=== PATIENT | female | born 1955 | race Caucasian/White ===

== ENCOUNTER 2019-11-25 14:53 | Outpatient (CLI) | payer MEDICARE, MEDICAID, SELFPAY ==
--- NOTE | 2019-11-25 15:06 | MR_ITS ---
WS: [id number] MRI BRAIN WITH AND WITHOUT CONTRAST HISTORY: Memory loss and amnesia. COMPARISON: None available. TECHNIQUE: Multiplanar imaging performed through the brain with Prohance 17 ml's IV. No acute infarcts are seen. Velasquez-white matter differentiation is well preserved. Extensive T2 and FLA IR signal abnormalities throughout the brain. There are innumerable subcortical and periventricular w suly matter abnormalities. These are extensive beginning at the vertex extending through the basal ga nglia. Additional bilateral signal abnormalities within the ivy. Several of the white matter lesions are closely associated with the corpus callosum. No susceptibility artifacts or prior lacunar infarcts. Ventricles and extra-axial spaces are normal. Clivus and pituitary gland are normal. No enhancing masses. None of the white matter lesions enhance. There is a filling defect in the RIGHT transverse sinus most likely an arachnoid granulation as it is well-circumscribed. Small caliber but patent distal LEFT vertebral artery. Paranasal sinuses: Well aerated with no significant disease. Mastoid air cells: Normal. Calvarium and scalp: Normal. MR/MR head wo/w con [id number] IMPRESSION: 1. No acute infarct. 2. Extensive T2 and FLAIR signal abnormalities throughout the supratentorial b rain in the ivy. More advanced than typically noted in a patient of this age. Differential includes changes associated with hypertension, small vessel ischem ic disease, demyelinating disease and vasculitis. 3. No enhancing masses or signal abnormalities.
== END 2019-11-25 14:54 | disposition home or self-care (01) ==
LOC: RADSHAW 15:05
PROVIDERS: PCP Family Medicine; Visit Provider Family Medicine
DX: R41.3 Other amnesia (principal)
CPT/HCPCS: 70553; A9579

== ENCOUNTER 2022-06-07 13:24 | Outpatient (CLI) | payer MEDICARE, MEDICAID, SELFPAY ==
--- NOTE | 2022-06-07 13:28 | MM_ITS ---
WS: [id number] VIEWS: MLO and CC views both breasts. 3D digital tomosynthesis is also included in this exam. No priors. Findings: There was no sign of mass, architectural distortion or suspicious calcification in either breast. 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
== END 2022-06-07 13:25 | disposition home or self-care (01) ==
LOC: RAD 13:25
PROVIDERS: PCP Family Medicine; Visit Provider Family Medicine
DX: Z12.31 Encounter for screening mammogram for malignant neoplasm of breast (principal)
CPT/HCPCS: 77063; 77067

== ENCOUNTER 2022-09-26 14:47 | Observation (INO) | payer MEDICARE, MEDICAID, SELFPAY ==
[2022-09-26 14:59] VITALS: BP 162/90; PULSE 95; RESP 16; TEMP 36.4; O2SAT 98
--- NOTE | 2022-09-26 15:00 | P.HP_ITS ---
Providers/Chief Complaint Admitting Physician: Khang Hitchcock MD Primary Care Provider: Apple Hitchcock MD Chief Complaint: direct admit History of Present Illness Aniyah Berman is a 67 year old female presenting from [facility] emergency department with history of slurred speech, difficulty with balance noted this morning. In the emergency department the patient received Plavix, aspirin, Lipitor. Patient relates to me she was doing okay this morning. 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 She does not believe she took her antihypertensives. While cleaning around 8 AM she noticed she had difficulty keeping her balance, falling to the left. Family member noticed a left facial droop, slurring of speech. Patient reported some headache, mainly on the left. She denies any visual difficulties, difficulty swallowing, nausea, chest discomfort. She states she was dizzy, feeling as if she might pass out. She reports the room was not spinning. This continued for perhaps 20 minutes and then symptoms completely resolved. Patient as well as family reports she is completely back to normal currently. She went to the emergency department at [place], and by the time she had arrived their symptoms are completely resolved. NIHSS score was 0. CT head did not demonstrate anything acute, CTA head and neck demonstrated moderate to severe stenosis left A3 segment. No arrhythmias were noted in the emergency department. She denies being ill lately. No recent fevers. No blood in her stool. No history of heart problems. Review of Systems General: Reports: 10 or more systems reviewed and unremarkable except in HPI and below Const: Denies: fever(s), chills, fatigue or malaise Card: Denies: chest pain Resp: Denies: dyspnea GI: Denies: hematochezia or melena Neuro: Reports: headache(s), lack of coordination, difficulty walking, dizziness and Slurred speech present; Denies: numbness in extremities or weakness in extremities Medications/Allergies Home Medications Medication Instructions Recorded Confirmed Last Taken Type ketotifen fumarate 0.025 % (0.035 1 drp ophthalmic (eye) BID PRN 02/10/22 09/09/22 Unknown Rx %) eye drops (Zaditor) allergy symptoms #5 mL aspirin 81 mg chewable tablet 81 mg PO DAILY 09/09/22 09/09/22 Unknown History clobetasol 0.05 % topical ointment 1 applic topical BID 3 weeks #60 09/09/22 09/09/22 Unknown Rx grams losartan 25 mg tablet 25 mg PO DAILY 09/09/22 09/09/22 Unknown History Allergies Allergy/AdvReac Type Severity Reaction Status Date / Time Sulfa (Sulfonamide Allergy Unknown Verified 09/09/22 10:46 Antibiotics) PFSH Acute PFSH: Medical History (Updated 09/26/22 @ 15:44 by Khang Hitchcock MD) Hypertension Surgical History History of hysterectomy Family History Mother Hypertension Diabetes Social History (Updated 09/26/22 @ 15:42 by Khang Hitchcock MD) Smoking and tobacco status: former smoker Alcohol intake: never Substance/Drug Use: never Adopted: No Caregiver/support person: No Lives independently: Yes service: No Current occupational status: employed Sexually active: Yes Current gender identity: Female Physical Exam Narrative: General exam is a white female, no distress HEENT: Atraumatic and normocephalic. Oropharynx clear. Neck is supple no lymphadenopathy thyromegaly Cardiovascular regular rate and rhythm without murmur, no S3 or S4 Lungs clear no wheezing or crackles Abdomen is soft nontender positive bowel sounds. No obvious organomegaly exam is deferred Extremities no cyanosis clubbing or edema, cap refill brisk Skin no rash Neuro no obvious focal deficits. NIHSS score 0 according to nurse, and I confirmed some of the exam as well Data Other Labs: EKG which I reviewed demonstrated normal sinus rhythm, normal axis, poor R wave progression. CBC demonstrates a white blood cell count 6.7, hemoglobin 13.4, platelet count of 260,000. Sodium is 136, potassium 3.5, chloride 102, bicarb 22, BUN 10, creatinine 0.6, glucose 126, albumin 4.3 LFTs all normal with exception of alk phos of 145 CT head no acute infarction. No hydrocephalus. Small vessel disease. Urinalysis is essentially negative Urine drug screen is negative Hemoglobin A1c is 5.5% CTA head and neck demonstrate multifocal moderate to severe stenosis of a 3 and distal segment of the left ELIUD. No large vessel occlusion was noted. A&P Assessment and plan (1) Symptoms of cerebrovascular accident: Patient had stroke symptoms, earlier this morning. Symptoms completely resolved at this point. She has a moderate the to severely narrowed left A3 segment. This does not explain her symptoms this morning Continue Plavix, aspirin, statin. She received doses in the emergency department at [place] Permissive hypertension Hydration Check echocardiogram Telemetry Continue neurologic checks Will consider event monitor at discharge Will need neurology follow-up in 2 weeks Restart her antihypertensives tomorrow, if no recurrent symptomatology Lipid profile, TSH in the morning (2) Hypertension: Permissive hypertension tonight. Likely restart antihypertensives tomorrow. Plan Full code Lovenox for DVT prophylaxis Attestations Medical Necessity Statement*: Will require less than 2 midnight stay for evaluation and treatment of stroke symptoms Coding Level of Care Code 69836 Moderate MDM includes number and complexity of problems actively addressed during encounter and amount and/or complexity of data reviewed/ordered as d ocumented Diagnoses Symptoms of cerebrovascular accident R09.89 Hypertension I10 Time Spent (min) 34
[2022-09-26 15:24] VITALS: BMI 24.8
--- NOTE | 2022-09-26 15:35 | USCV_ITS ---
Aniyah Berman Age: 67 Gender: F : 1955 Exam Date: 09/26/2022 17:14 Ordering Phys: Khang Hitchcock MD Technologist: Eliazar Santillan Exam Location: [facility] [place] Indication: TIA BP: 163 / 90 HR: 82 Rhythm: Sinus Technical Quality: Adequate MEASUREMENTS (Male / Female) Normal Values 2D ECHO LV Diastolic Diameter PLAX 4.9 cm 4.2 - 5.9 / 3.9 - 5.3 cm LV Systolic Diameter PLAX 3.0 cm IVS Diastolic Thickness 0.9 cm 0.6 - 1.0 / 0.6 - 0.9 cm IVS Systolic Thickness 1.0 cm LVPW Diastolic Thickness 1.1 cm 0.6 - 1.0 / 0.6 - 0.9 cm LVPW Systolic Thickness 2.0 cm LVOT Diameter 2.0 cm LV Ejection Fraction 2D Teich 68.3 % LV Ejection Fraction MOD 2C 57.6 % LV Ejection Fraction 2C AL 57.5 % LA Diameter 3.2 cm LA Width 3.0 cm LA Height 4.1 cm RA Width 2.6 cm RA Height 4.6 cm Aorta at Sinotubular Diameter 2.3 cm IVC Diameter 1.9 cm M-MODE Aortic Annulus Diameter 2.7 cm LA Ao Ratio MM 1.2 MV E Point Septal Separation 0.6 cm DOPPLER AV Peak Velocity 139.7 cm/s LVOT Peak Velocity 109.0 cm/s AV Area Cont Eq vti 2.9 cm squared AV Area Cont Eq pk 2.5 cm squared MV Peak Velocity 102.0 cm/s MV Area PHT 4.5 cm squared Mitral E to A Ratio 0.8 MV E' Velocity 37.5 cm/s Mitral E to MV E' Ratio 8.8 Mitral E to LV E' Lateral Ratio 7.1 Mitral E to LV E' Septal Ratio 11.6 TR Peak Velocity 310.1 cm/s TR Peak Gradient 38.5 mmHg TR Mean Velocity 220.4 cm/s TR Mean Gradient 21.8 mmHg TR Velocity Time Integral 66.2 cm Right Atrial Pressure 3.0 mmHg Pulmonary Artery Systolic Pressu 41.5 mmHg PV Peak Velocity 107.0 cm/s RV Acceleration Time 0.1 s RV Ejection Time 0.3 s RV AcT/ET 0.5 FINDINGS Left Ventricle Normal left ventricular size and systolic function, EF 59 %. No regional wall motion abnormalities. Grade I/IV diastolic dysfunction (abnormal relaxation filling pattern), normal to mildly elevated filling pressures. Right Ventricle The right ventricle is normal in size and function. Right Atrium The right atrium is normal in size. Left Atrium The left atrium is normal in size. Mitral Valve No gross abnormalities noted Aortic Valve Thickened aortic valve. Tricuspid Valve Mild tricuspid valve regurgitation. Pulmonic Valve Pulmonic valve not well visualized. Pericardium Normal pericardium without effusion. Aorta Mildly dilated ascending aorta measuring 3.6 cm in diameter IVC Inferior vena cava not visualized. CONCLUSIONS Normal left ventricular size and systolic function, EF 59 %. No regional wall motion abnormalities. Grade I/IV diastolic dysfunction (abnormal relaxation filling pattern), normal to mildly elevated filling pressures. Thickened aortic valve. Mild tricuspid valve regurgitation. Estimated pulmonary artery peak systolic pressure 42 mm Hg. There is no pericardial effusion. There are no intracardiac masses. Mildly dilated ascending aorta measuring 3.6 cm in diameter. No similar previous studies are available for comparison Dr Terrence Millan MD [facility] (Electronically Signed) Final Date: 26 September 2022 19:45 S
[2022-09-26] MEDS: enoxaparin 40 mg/0.4 mL Syringe SUBCUT (16:25)
[2022-09-26] MEDS: sodium chloride 0.9% 1,000 ML 75 ML IV (16:25)
[2022-09-26 20:28] VITALS: BP 193/86; PULSE 79; RESP 18; TEMP 36.4; O2SAT 97
[2022-09-26 22:00] VITALS: PULSE 69
[2022-09-26 23:29] VITALS: BP 167/81; PULSE 65; RESP 17; TEMP 36.3; O2SAT 95
[2022-09-27 04:00] VITALS: BP 153/82; PULSE 74; RESP 16; TEMP 36.2; O2SAT 98
[2022-09-27 05:11] LABS: Basophils # 0.1 10^3/uL (0.0-0.1); Eosinophils # 0.3 10^3/uL (0.0-0.8); Eosinophils % 5.3 %; Hematocrit 37.4 % (37.0-47.0); Hemoglobin 12.5 g/dL (11.5-15.3); Lymphocytes # 1.5 10^3/uL (0.8-4.8); Lymphocytes % 29.9 %; Mean Corpuscular HGB Conc 33.4 g/dL (30.0-36.0); Mean Corpuscular Volume 83.7 fl (81-99); Mean Platelet Volume 9.9 fL (7.4-10.4); Monocytes # 0.4 10^3/uL (0.2-0.9); Monocytes % 8.7 %; Neutrophils % 54.9 %; Nucleated Red Blood Cells % 0 %; Platelet Count 210 10^3/cmm (130-400); Red Blood Count 4.47 10^6/uL (4.1-5.3); Red Cell Distribution Width 13.5 % (12.1-15.1); White Blood Count 4.9 10^3/uL (4.0-10.0)
[2022-09-27 05:45] LABS: Anion Gap 16.5 (5-19); Blood Urea Nitrogen 11 mg/dL (8-23); Calcium 8.5 mg/dL (8.5-10.5); Carbon Dioxide 20 mmol/L (22-29); Chloride 109 mmol/L (98-107); Chol HDL Ratio 3.93 mg/dL (0.0-4.40); Cholesterol 181 mg/dL (0-200); Glomerular Filtration Rate 122.7 mL/min (90-130); Glucose 95 mg/dL (65-115); HDL Cholesterol 46 mg/dL (60-100); LDL Cholesterol Calculated 100 mg/dL (50-129); LDL HDL Ratio 2.17 RATIO (0.00-3.22); Osmolality Calculated 293 mOsm/kg (285-295); Potassium 3.5 mmol/L (3.5-5.1); Sodium 142 mmol/L (136-145); Thyroid Stimulating Hormone 2.51 uIU/mL (0.27-4.20); Triglycerides 176 mg/dL (0-150)
[2022-09-27 05:50] LABS: Estmated Average Glucose 117; Hemoglobin A1C 5.7 % (4.0-6.0)
[2022-09-27] MEDS: sodium chloride 0.9% 1,000 ML 75 ML IV (05:50)
--- NOTE | 2022-09-27 06:42 | P.DS_ITS ---
Discharge Providers Date of Admission: 09/26/22 14:47 Date of Discharge: September 27, 2022 Attending Provider at Admission: Apple Hitchcock MD Attending Provider at Discharge: Khang Hitchcock MD Primary Care Provider: Apple Hitchcock MD Diagnoses at Discharge Discharge Diagnosis (1) Symptoms of cerebrovascular accident: Status: Acute (2) Hypertension: Status: Acute Reason for Visit Reason for Visit: direct admit Hospital Course Hospital Course Aniyah is a 67-year-old white female who presented to the hospital as a transfer from [facility]. She went to the emergency department there secondary to facial droop, presumably weakness on the left with difficulty walking and falling to the left. Symptoms lasted 20 minutes and were resolved prior to evaluation in the emergency department. During her emergency department stay there and hospital stay here she had no evidence of arrhythmias. She was placed on Plavix, aspirin, and a statin. Permissive hypertension was allowed. CT there showed no acute findings. CTA demonstrated moderate to severely narrowed A3 ELIUD segment. The following day, as the patient had no symptoms she was discharged home on Plavix, aspirin, statin with follow-up with her primary care provider and neurology. Event monitor on discharge. She will resume her losartan. Her and her family were given an opportunity ask questions, and agreed with the plan. Echo was also performed demonstrating preserved EF, 1/4 diastolic dysfunction, mild tricuspid regurg Physical Exam Narrative: Neuro exam no focal deficits Cardiovascular regular rate and rhythm Lungs clear Abdomen is soft positive bowel sounds Extremities no cyanosis clubbing or edema Discharge Data Studies Completed and Pending Completed Studies During Hospitalization Category Date Time Status CV. echo complete* [id number] Routine Ultrasound 09/26/22 15:35 Completed Laboratory Results WBC 4.9 10^3/uL (4.0-10.0) 09/27/22 04:42 RBC 4.47 10^6/uL (4.1-5.3) 09/27/22 04:42 Hgb 12.5 g/dL (11.5-15.3) 09/27/22 04:42 Hct 37.4 % (37.0-47.0) 09/27/22 04:42 MCV 83.7 fl (81-99) 09/27/22 04:42 MCH 28.0 pg (28.0-34.0) 09/27/22 04:42 MCHC 33.4 g/dL (30.0-36.0) 09/27/22 04:42 RDW 13.5 % (12.1-15.1) 09/27/22 04:42 Plt Count 210 10^3/cmm (130-400) 09/27/22 04:42 MPV 9.9 fL (7.4-10.4) 09/27/22 04:42 Neut % (Auto) 54.9 % 09/27/22 04:42 Lymph % (Auto) 29.9 % 09/27/22 04:42 [place] % (Auto) 8.7 % 09/27/22 04:42 Eos % (Auto) 5.3 % 09/27/22 04:42 Baso % (Auto) 1.0 % 09/27/22 04:42 Neut # (Auto) 2.70 10^3/uL (1.8-7.7) 09/27/22 04:42 Lymph # (Auto) 1.5 10^3/uL (0.8-4.8) 09/27/22 04:42 [place] # (Auto) 0.4 10^3/uL (0.2-0.9) 09/27/22 04:42 Eos # (Auto) 0.3 10^3/uL (0.0-0.8) 09/27/22 04:42 Baso # (Auto) 0.1 10^3/uL (0.0-0.1) 09/27/22 04:42 Nucleated RBC % (auto) 0 % 09/27/22 04:42 Nucleated RBCs # 0.0 /100WBC 09/27/22 04:42 Sodium 142 mmol/L (136-145) 09/27/22 04:42 Potassium 3.5 mmol/L (3.5-5.1) 09/27/22 04:42 Chloride 109 mmol/L (98-107) H 09/27/22 04:42 Carbon Dioxide 20 mmol/L (22-29) L 09/27/22 04:42 Anion Gap 16.5 (5-19) 09/27/22 04:42 BUN 11 mg/dL (8-23) 09/27/22 04:42 Creatinine 0.5 mg/dL (0.5-0.9) 09/27/22 04:42 GFR Calculation 122.7 mL/min (90-130) 09/27/22 04:42 Glucose 95 mg/dL (65-115) 09/27/22 04:42 Estimat Average Glucose 117 09/27/22 04:42 Hemoglobin A1c 5.7 % (4.0-6.0) 09/27/22 04:42 Calculated Osmolality 293 mOsm/kg (285-295) 09/27/22 04:42 Calcium 8.5 mg/dL (8.5-10.5) 09/27/22 04:42 Triglycerides 176 mg/dL (0-150) H 09/27/22 04:42 Cholesterol 181 mg/dL (0-200) 09/27/22 04:42 LDL Cholesterol, Calc 100 mg/dL (50-129) 09/27/22 04:42 HDL Cholesterol 46 mg/dL (60-100) L 09/27/22 04:42 LDL/HDL Ratio 2.17 RATIO (0.00-3.22) 09/27/22 04:42 Cholesterol/HDL Ratio 3.93 mg/dL (0.0-4.40) 09/27/22 04:42 TSH 2.51 uIU/mL (0.27-4.20) 09/27/22 04:42 Vitals Last Vital Signs Temp 97.1 F L 09/27/22 04:00 Pulse 74 09/27/22 04:00 Resp 16 09/27/22 04:00 BP 153/82 09/27/22 04:00 Pulse Ox 98 09/27/22 04:00 O2 Del Method 09/26/22 14:59 Discharge Plan Discharge Patient Disposition: Home Condition: Stable Prescriptions: New clopidogrel 75 mg Tablet 75 mg PO DAILY Qty: 30 0RF atorvastatin 40 mg Tablet 40 mg PO DAILY Qty: 30 0RF Continued aspirin 81 mg tablet,chewable 81 mg PO DAILY losartan 25 mg tablet 25 mg PO DAILY clobetasol 0.05 % ointment 1 applic topical BID 21 Days Qty: 60 2RF Rx Instructions: Apply to affected areas no more than 2 weeks per month, not for face or skin folds. ketotifen fumarate [Zaditor] 0.025 % (0.035 %) drops 1 drp ophthalmic (eye) BID PRN (Reason: allergy symptoms) Qty: 5 0RF Rx Instructions: administer at least 8 hours apart Discharge Orders: Discharge Order (Routine); Ordered 09/27/22 Ordered By: Khang Hitchcock Other Ambulatory Orders: MCT/Event Monitor 21 Days (Routine) Timeframe: 1 Week Facility: [facility] - Location: Radiology Ordered By: Khang Hitchcock Referrals: Sandra Reyes MD [Physician] - 2 weeks (Follow-up CVA) Apple Hitchcock MD [Primary Care Provider] - 4-7 days Discharge Diet: Low Cholesterol Discharge Activity: Increase activity as tolerated Patient Instructions: Opioid Safety Activity Restrictions/Additional Instructions: Take all medicine as prescribed. Return for any concerns Arrange for event monitor Patient's Health Concerns: Weakness, facial droop, Assessment: Stroke, symptoms resolved Plan of Treatment: Plavix, aspirin, statin Discharge Attestations Time Spent in Discharge Care*: greater than 30 min Quality Metrics Clinical Quality Measures [ Cerebrovascular Accident { Contraindication to Antithrombotic: None; antithrombotic prescribed; Contraindication to Anticoagulation: Other (not indicated); Contraindication to Statin: None; Statin prescribed;}] Coding Level of Care Code 02945 Diagnoses Symptoms of cerebrovascular accident R09.89 Hypertension I10 Time Spent (min) 37
[2022-09-27 08:00] VITALS: BP 154/78; PULSE 80; RESP 16; TEMP 36.4; O2SAT 97
[2022-09-27 08:24] VITALS: BP 153/82
[2022-09-27] MEDS: clopidogrel 75 mg Tablet PO (08:24)
[2022-09-27] MEDS: aspirin 81 mg EC Tablet PO (08:24)
[2022-09-27] MEDS: atorvastatin 40 mg Tablet PO (08:24)
[2022-09-27] MEDS: losartan 50 mg Tablet 25 MG PO (08:24)
--- NOTE | 2022-09-27 10:29 | PC.CHAP ---
Pastoral Care Encounter/Spiritual Assessment Type of Contact [] Declined qi specialist visit [] Patient/Family/Request visit [] Outpatient visit [] Follow-up visit [] Physician referral [] Code/Alert [x] Routine visit [] Staff referral [] Actively dying [] Patient sleeping [x] Family support [] [] Out of room [] Palliative care [] [] Receiving care in room [] Pre-surgical visit [] Trauma [] Long length of stay [] ICU visit [] Other: Relational/Emotional Strength [x] Patient feels connected with others/family/visitors/staff [] Distress [] Loneliness/isolation [] Abandonment Spirituality of Patient [x] Person of Luciana [] Attends Confucianist of their Luciana [x] Believes in Prayer [] Reads Bible or Confucianism materials [] There are Spiritual issues to be addressed 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 Interventions [x] Prayer [x] Active listening [] Non-anxious presence [x] Spiritual/emotional support [] Crisis/trauma care [] Spiritual counseling [] Bereavement support [] Provided bereavement packet [] Provided Bible/devotional materials [] Provided toy/stuffed animal, coloring book to patient or family member [] Provided Communion [] Anointing/[place] [] Salvation [x] Completed spiritual assessment [] Other: Impact on Illness or Injury [] Angry [] Fearful [] Anxious [] Often cries [] Exhaustion [] Unable to work [] Unable to attend sikh [] Unable to walk/stand [] Unable to read [] Unable to drive [] Unable to eat/drink [] Unable to sleep [] Unable to be with family [] Patient intubated [] Other: Summary Time spent with patient 5 min
[2022-09-27 11:01] VITALS: BP 153/82
--- NOTE | 2022-09-27 11:44 | PC.OT ---
PATIENT D/C BEFORE EVALUATION COULD BE COMPLETED.
== END 2022-09-27 10:03 | disposition home or self-care (01) ==
PROVIDERS: Internal Medicine; Admitting Provider Family Medicine; PCP Family Medicine; Visit Provider Hospitalist
DX: R47.81 Slurred speech (principal); R51.9 Headache, unspecified; R42 Dizziness and giddiness; R26.2 Difficulty in walking, not elsewhere classified; I07.1 Rheumatic tricuspid insufficiency; I77.819 Aortic ectasia, unspecified site; I10 Essential (primary) hypertension; Z87.891 Personal history of nicotine dependence
CPT/HCPCS: 80048; 80061; 83036; 84443; 85025; 93306; 96372; G0378; G0379; J1650; J7030

== ENCOUNTER 2022-10-11 10:14 | Emergency (ER) | payer MEDICARE, MEDICAID, SELFPAY ==
[2022-10-11 10:26] VITALS: BP 157/100; PULSE 110; RESP 18; O2SAT 98; BMI 25.7
--- NOTE | 2022-10-11 10:34 | W.ED.EPISTAX ---
HPI - Epistaxis General: Chief complaint: Epistaxis Stated complaint: Nose Bleed Time Seen by Provider: 10/11/22 10:19 Source: patient Mode of arrival: ambulatory History of Present Illness: 67-year-old female presents to the emergency room with epistaxis. Began around 9 AM this morning. She recently had been started on Plavix and aspirin for a TIA. She has had problems with epistaxis in the past although it was nearly 20 years ago at that point need to be cauterized. She is not on any warfarin or other oral anticoagulants. MD complaint: epistaxis Location: bilateral nostril Onset (ago): hour(s) Duration: constant Context: history of previous (Remote) Associated symptoms: Reports no associated symptoms; Deny fever(s) or vomiting Treatment prior to arrival: nose pinching Review of Systems Const: Denies: fever(s), chills, body aches, change in appetite, fatigue or malaise ENMT: Denies: throat pain, ear or mastoid pain, nasal discharge or nasal congestion Card: Denies: chest pain, edema, dyspnea on exertion or orthopnea Resp: Denies: dyspnea, productive cough or non-productive cough GI: Denies: abdominal pain, nausea, vomiting, hematemesis, coffee ground emesis, diarrhea, constipation, bloating, hematochezia or melena : Denies: flank pain, difficulty voiding, dysuria, urinary frequency or urinary urgency Skin/Breast: Denies: rash or pruritus [facility] PFSH: Medical History Hypertension Surgical History History of hysterectomy Family History Mother Hypertension Diabetes Social History Smoking and tobacco status: former smoker Alcohol intake: never Substance/Drug Use: never Adopted: No Caregiver/support person: No Lives independently: Yes service: No Current occupational status: employed Sexually active: Yes Do you think of yourself as: Straight/Heterosexual Current gender identity: Female Physical Exam Const: GENERAL APPEARANCE: cooperative and comfortable ORIENTATION/CONSCIOUSNESS: Yes awake, Yes oriented to person, Yes oriented to place and Yes oriented to time HENMT: COMMON NORMALS: normocephalic, atraumatic and hearing grossly normal bilaterally HEAD & SCALP: normocephalic and atraumatic OTHER: Epistaxis bilaterally from the naris Resp: COMMON NORMALS: normal respiratory effort, No retractions, No use of accessory muscles and clear to auscultation bilaterally AUSCULTATION: clear to auscultation bilaterally Cardio: COMMON NORMALS: regular rate, regular rhythm and No murmurs present (Cardio) RATE: regular rate RHYTHM: regular rhythm GI: COMMON NORMALS: Soft to palpation and No hepatosplenomegaly present AUSCULTATION: Yes normoactive bowel sounds PALPATION: Yes Soft to palpation, No Tenderness to palpation present (GI), No Guarding due to palpation present (GI) and Yes No hepatosplenomegaly present Extremity: COMMON NORMALS: normal to inspection, capillary refill normal, no clubbing, cyanosis or edema, no calf tenderness and no pedal edema Neuro: SENSORIUM/ORIENTATION: Yes oriented to person, Yes oriented to place and Yes oriented to time Skin: COMMON NORMALS: no rashes or lesions noted GENERAL SKIN EXAM: no rashes or lesions noted Course Vital Signs: Vital signs: Vital Signs Pulse Rate 78 10/11/22 13:43 Respiratory Rate 16 10/11/22 13:43 Blood Pressure 106/68 10/11/22 13:43 Pulse Oximetry 96 10/11/22 13:43 Oxygen Delivery Me thod Room Air 10/11/22 13:43 MDM - Epistaxis Medical Decision Making Nasal tampon applied in the right nare with significant amount of discomfort but was able to get the bleeding to stop shortly after that patient a vasovagal episode she vomited some blood we are so able to suction her a the nasal tampon was removed and nasopharyngeal airway was placed when she get regained consciousness she was awake and alert. CT of the head EKG and chest x-ray were all normal patient has recovered well and she is not having any further problems. We will discharge her home on Augmentin 875 twice daily for 5 days mupirocin inside the nare during the same time follow-up with ENT Medical Records I reviewed the patient's medical records. Lab Data I reviewed the patient's lab results. 10/11/22 10:40 10/11/22 10:40 Radiology Impressions Chest X-Ray 10/11/22 11:36 IMPRESSION: 1. Negative chest. Head CT 10/11/22 11:45 IMPRESSION: 1. No evidence of intracranial hemorrhage or mass effect. 2. Moderate small vessel changes. Moderate parenchymal volume loss. 3. Vascular calcification. 4. Fluid partially visualized RIGHT maxillary sinus. Maxillary sinuses mostly not included on study. Laboratory Results WBC 5.2 10^3/uL (4.0-10.0) 10/11/22 10:40 RBC 4.66 10^6/uL (4.1-5.3) 10/11/22 10:40 Hgb 12.9 g/dL (11.5-15.3) 10/11/22 10:40 Hct 39.3 % (37.0-47.0) 10/11/22 10:40 MCV 84.3 fl (81-99) 10/11/22 10:40 MCH 27.7 pg (28.0-34.0) L 10/11/22 10:40 MCHC 32.8 g/dL (30.0-36.0) 10/11/22 10:40 RDW 13.8 % (12.1-15.1) 10/11/22 10:40 Plt Count 277 10^3/cmm (130-400) 10/11/22 10:40 MPV 9.3 fL (7.4-10.4) 10/11/22 10:40 Neut % (Auto) 57.9 % 10/11/22 10:40 Lymph % (Auto) 28.4 % 10/11/22 10:40 [place] % (Auto) 7.3 % 10/11/22 10:40 Eos % (Auto) 5.0 % 10/11/22 10:40 Baso % (Auto) 1.2 % 10/11/22 10:40 Neut # (Auto) 3.02 10^3/uL (1.8-7.7) 10/11/22 10:40 Lymph # (Auto) 1.5 10^3/uL (0.8-4.8) 10/11/22 10:40 Summit # (Auto) 0.4 10^3/uL (0.2-0.9) 10/11/22 10:40 Eos # (Auto) 0.3 10^3/uL (0.0-0.8) 10/11/22 10:40 Baso # (Auto) 0.1 10^3/uL (0.0-0.1) 10/11/22 10:40 Nucleated RBC % (auto) 0 % 10/11/22 10:40 Nucleated RBCs # 0.0 /100WBC 10/11/22 10:40 Sodium 140 mmol/L (136-145) 10/11/22 10:40 Potassium 3.4 mmol/L (3.5-5.1) L 10/11/22 10:40 Chloride 106 mmol/L (98-107) 10/11/22 10:40 Carbon Dioxide 24 mmol/L (22-29) 10/11/22 10:40 Anion Gap 13.4 (5-19) 10/11/22 10:40 BUN 9 mg/dL (8-23) 10/11/22 10:40 Creatinine 0.5 mg/dL (0.5-0.9) 10/11/22 10:40 GFR Calculation 122.7 mL/min (90-130) 10/11/22 10:40 Glucose 159 mg/dL (65-115) H 10/11/22 10:40 Calculated Osmolality 292 mOsm/kg (285-295) 10/11/22 10:40 Calcium 9.2 mg/dL (8.5-10.5) 10/11/22 10:40 Discharge Plan Discharge Patient Disposition: Home Clinical Impression: Epistaxis, Vasovagal syncope Condition: Stable Prescriptions: New mupirocin 2 % ointment 1 applic topical BID Qty: 15 0RF amoxicillin-pot clavulanate 875-125 mg tablet 1 tab PO BID 5 Days Qty: 10 0RF No Action aspirin 81 mg tablet,chewable 81 mg PO DAILY@10 losartan 25 mg tablet 25 mg PO DAILY@10 ibuprofen 800 mg tablet 800 mg PO TID PRN (Reason: Pain) clobetasol 0.05 % ointment See Rx Instructions .ROUTE .COMPLEX Rx Instructions: APPLY TO AFFECTED AREAS NO MORE THAN 2 WEEKS PER MONTH PRN. NOT FOR FACE OR SKIN FOLDS. atorvastatin 40 mg tablet 40 mg PO DAILY@10 clopidogrel 75 mg tablet 75 mg PO DAILY@10 acetaminophen 500 mg tablet 1,000 mg PO Q8H PRN (Reason: Pain) Discharge Orders: Discharge ED (Routine); Ordered 10/11/22 Ordered By: Chris Mejía Referrals: Apple Hitchcock MD [Primary Care Provider] - Discharge Diet: Usual diet Discharge Activity: Increase activity as tolerated Patient Instructions: Opioid Safety, Pain Management Activity Restrictions/Additional Instructions: You were seen today for epistaxis. You had a vasovagal episode resulting in a passing out spell that lasted for a few minutes. The remainder of your labs were not significantly abnormal. Recommend you avoid vigorous nose blowing. Apply the mupirocin inside the nares twice daily for 4 to 5 days. Also antibiotic 1 pill twice daily for 5 days return if you have further problems. Continue all other previously prescribed medications Coding Level of Care Code ED Accreditation Manager for Delmy Dotson
[2022-10-11 10:51] LABS: Basophils # 0.1 10^3/uL (0.0-0.1); Basophils % 1.2 %; Eosinophils # 0.3 10^3/uL (0.0-0.8); Hematocrit 39.3 % (37.0-47.0); Hemoglobin 12.9 g/dL (11.5-15.3); Lymphocytes # 1.5 10^3/uL (0.8-4.8); Lymphocytes % 28.4 %; Mean Corpuscular HGB Conc 32.8 g/dL (30.0-36.0); Mean Corpuscular Hemoglobin 27.7 pg (28.0-34.0); Mean Corpuscular Volume 84.3 fl (81-99); Mean Platelet Volume 9.3 fL (7.4-10.4); Monocytes # 0.4 10^3/uL (0.2-0.9); Monocytes % 7.3 %; Neutrophils # 3.02 10^3/uL (1.8-7.7); Neutrophils % 57.9 %; Nucleated Red Blood Cells % 0 %; Platelet Count 277 10^3/cmm (130-400); Red Blood Count 4.66 10^6/uL (4.1-5.3); Red Cell Distribution Width 13.8 % (12.1-15.1); White Blood Count 5.2 10^3/uL (4.0-10.0)
[2022-10-11 11:16] LABS: Anion Gap 13.4 (5-19); Blood Urea Nitrogen 9 mg/dL (8-23); Calcium 9.2 mg/dL (8.5-10.5); Carbon Dioxide 24 mmol/L (22-29); Chloride 106 mmol/L (98-107); Creatinine Clr Calc Pharmacy 63.7878; Glomerular Filtration Rate 122.7 mL/min (90-130); Glucose 159 mg/dL (65-115); Osmolality Calculated 292 mOsm/kg (285-295); Potassium 3.4 mmol/L (3.5-5.1); Sodium 140 mmol/L (136-145)
[2022-10-11] MEDS: oxymetazoline 0.05% Nasal Spray 15 mL 2 SPRAY NOSTRIL-B (11:36)
--- NOTE | 2022-10-11 11:36 | XR_ITS ---
WS: [id number] Exam: XR chest 1V portable [id number] Date/Time of Exam: 10/11/2022 11:36 AM Reason For Exam: dyspnea/cough No priors. The lungs are clear and fully expanded. Normal cardiomediastinal silhouette. No pleural effusions. [place] elements are unremarkable. XR/XR chest 1V portable [id number] IMPRESSION: 1. Negative chest.
[2022-10-11] MEDS: LORazepam 2 mg/mL INJ 1 mL IM (11:37)
[2022-10-11] MEDS: saline nasal spray 44mL Btl 1 SPRAY NASAL (11:37)
[2022-10-11] MEDS: ondansetron 2 mg/ML SDV 2 mL 4 MG IVP (11:37)
[2022-10-11] MEDS: sodium chloride 0.9% 1,000 ML 999 ML IV (11:37)
--- NOTE | 2022-10-11 11:40 | PC.NURSE ---
Patient son came out of room calling for help. I was first nurse in the room. When i came in patient was slumped to the left with obvious blood and throw up coming out of her mouth. I, along with another nurse,verified pulse. This is when elmer and severalother nurses where now in the room helping with orders.
--- NOTE | 2022-10-11 11:45 | CT_ITS ---
WS: [id number] CT HEAD TECHNIQUE: Noncontrast CT of the head obtained from the skullbase to the vertex. CLINICAL INFORMATION: Loss of consciousness, epistaxis COMPARISON: CT September 26, 2022 DLP: 1038.[address] scans at [facility] use at least one of these dose optimization techniques: automated e xposure control; mA and/or kV adjustment per patient size (includes targeted exams where dose is matc hed to clinical indication); or iterative reconstruction. FINDINGS: No evidence of intracranial hemorrhage or mass effect. Ventricular system and basal cisterns are perez nt. Moderate small vessel changes with moderate parenchymal volume loss. Tiny chronic lacunar infarct LEFT basal ganglia. No extra-axial fluid collections. No evidence of mass or mass effect. Mastoid air cells well aerated. Mucosal thickening RIGHT mastoid tip. Vascular calcification. Small a mount of fluid in the partially visualized RIGHT maxillary sinus. CT/CT head wo con* [id number] IMPRESSION: 1. No evidence of intracranial hemorrhage or mass effect. 2. Moderate small vessel changes. Moderate parenchymal volume loss. 3. Vascular calcification. 4. Fluid partially visualized RIGHT maxillary sinus. Maxillary sinuses mostly not included on study.
[2022-10-11 11:51] VITALS: BP 131/68; PULSE 86; RESP 18; O2SAT 93
[2022-10-11 12:20] VITALS: BP 130/68; RESP 18; O2SAT 89
[2022-10-11 13:43] VITALS: BP 106/68; PULSE 78; RESP 16; O2SAT 96
[2022-10-11] MEDS: mupirocin oint 22 gm 1 APPLIC NASAL (14:07)
--- NOTE | 2022-10-12 09:20 | DCPLANNER ---
Addendum entered by Sigrid Mosqueda 10/19/22 09:36: Patient had a follow up appointment scheduled with ENT - patient did attend appointment Original Note: passenger service manager had message to schedule a follow up appointment for patient with ENT. passenger service manager sent patients information to the front office staff at ENT. Patients information will be printed and reviewed. Clinic will call patient with appointment information.
== END 2022-10-11 14:10 | disposition home or self-care (01) ==
PROVIDERS: Emergency Provider Family Medicine; PCP Family Medicine
DX: R04.0 Epistaxis (principal); R55 Syncope and collapse; Z79.82 Long term (current) use of aspirin; Z79.02 Long term (current) use of antithrombotics/antiplatelets; I10 Essential (primary) hypertension; Z87.891 Personal history of nicotine dependence
CPT/HCPCS: 36415; 70450; 71045; 80048; 85025; 96361; 96372; 96374; 99285; J2060; J2405; J7030

== ENCOUNTER 2022-10-12 | Outpatient (CLI) | payer MEDICARE, MEDICAID, SELFPAY ==
--- NOTE | 2022-11-08 14:45 | MR_ITS ---
WS: [id number] MRI BRAIN WITHOUT CONTRAST HISTORY: G45.9 - Transient cerebral ischemic attack, unspecified COMPARISON: CT head 10/11/2022 TECHNIQUE: Diffusion imaging, multiplanar T1, T2 and FLAIR imaging obtained. No evidence for acute infarct or hemorrhage. Velasquez-white matter differentiation is normal. No remote or acute infarcts are volume loss. Moderate small vessel ischemic disease is symmetric. Pat minerva and focal areas of increased T2 and FLAIR signal in the periventricular white matter. Bilateral i schemic changes in the ivy. Very similar to the prior study from 2019. Ventricles and extra-axial spaces are normal. No inferior displacement of cerebellar tonsils. The sella turcica and pituitary gland are unremarkabl e. Dural venous sinuses and [place] of [place] demonstrate no abnormality on this unenhanced studies. Paranasal sinuses: Clear. Mastoid air cells: Mild mucoperiosteal thickening in the LEFT mastoid air cells. Calvarium and scalp: Intact.
== END 2022-10-12 23:00 | disposition home or self-care (01) ==
LOC: RAD 10-24 12:13
PROVIDERS: PCP Family Medicine; Visit Provider Psychiatry & Neurology Neurology
DX: R93.0 Abnormal findings on diagnostic imaging of skull and head, not elsewhere classified (principal); R04.0 Epistaxis; G45.0 Vertebro-basilar artery syndrome; Z86.73 Personal history of transient ischemic attack (TIA), and cerebral infarction without residual deficits; R09.89 Other specified symptoms and signs involving the circulatory and respiratory systems; I49.1 Atrial premature depolarization; I49.3 Ventricular premature depolarization
CPT/HCPCS: 93270; 99203

== ENCOUNTER → 2022-10-17 10:46 | Outpatient (BNVA) | payer MEDICARE, MEDICAID, SELFPAY | PROVIDERS: PCP Family Medicine; Visit Provider Otolaryngology | DX: R04.0 Epistaxis (principal); I10 Essential (primary) hypertension | CPT/HCPCS: 99203 ==

== ENCOUNTER → 2022-10-21 11:19 | Outpatient (BNVA) | payer MEDICARE, MEDICAID, SELFPAY | PROVIDERS: PCP Family Medicine; Visit Provider Otolaryngology | DX: R04.0 Epistaxis (principal); I10 Essential (primary) hypertension | CPT/HCPCS: 99213; 99214 ==

== ENCOUNTER 2022-11-08 08:28 | Outpatient (CLI) | payer MEDICARE, MEDICAID, SELFPAY ==
--- NOTE | 2022-11-08 | MR_ITS ---
NOTE: Report was unsigned for reason: Order was edited. Original Signature date and time was: 11/08/22 @ 1546 MRI BRAIN WITHOUT CONTRAST HISTORY: G45.9 - Transient cerebral ischemic attack, unspecified COMPARISON: CT head 10/11/2022 TECHNIQUE: Diffusion imaging, multiplanar T1, T2 and FLAIR imaging obtained. No evidence for acute infarct or hemorrhage. Velasquez-white matter differentiation is normal. No remote or acute infarcts are volume loss. Moderate small vessel ischemic disease is symmetric. Patchy and focal areas of increased T2 and FLAIR signal in the periventricular white matter. Bilateral ischemic changes in the ivy. Very similar to the prior study from 2019. Ventricles and extra-axial spaces are normal. No inferior displacement of cerebellar tonsils. The sella turcica and pituitary gland are unremarkable. Dural venous sinuses and [place] of [place] demonstrate no abnormality on this unenhanced studies. Paranasal sinuses: Clear. Mastoid air cells: Mild mucoperiosteal thickening in the LEFT mastoid air cells. Calvarium and scalp: Intact. IMPRESSION: 1. No acute infarct or diffusion abnormality. 2. Moderate small vessel ischemic disease in the cerebral white matter and also the ivy bilaterally. 3. No hydrocephalus. MTDD
--- NOTE | 2022-11-08 06:55 | MR_ITS ---
WS: [id number] MRI BRAIN WITHOUT CONTRAST HISTORY: G45.9 - Transient cerebral ischemic attack, unspecified COMPARISON: CT head 10/11/2022 TECHNIQUE: Diffusion imaging, multiplanar T1, T2 and FLAIR imaging obtained. No evidence for acute infarct or hemorrhage. Velasquez-white matter differentiation is normal. No remote or acute infarcts are volume loss. Moderate small vessel ischemic disease is symmetric. Pat minerva and focal areas of increased T2 and FLAIR signal in the periventricular white matter. Bilateral i schemic changes in the ivy. Very similar to the prior study from 2019. Ventricles and extra-axial spaces are normal. No inferior displacement of cerebellar tonsils. The sella turcica and pituitary gland are unremarkabl e. Dural venous sinuses and [place] of [place] demonstrate no abnormality on this unenhanced studies. Paranasal sinuses: Clear. Mastoid air cells: Mild mucoperiosteal thickening in the LEFT mastoid air cells. Calvarium and scalp: Intact. MR/MR head wo con* [id number] IMPRESSION: 1. No acute infarct or diffusion abnormality. 2. Moderate small vessel ischemic disease in the cerebral white matter and als o the ivy bilaterally. 3. No hydrocephalus.
== END 2022-11-08 08:29 | disposition home or self-care (01) ==
LOC: RAD 11-09 08:34
PROVIDERS: PCP Family Medicine; Visit Provider Psychiatry & Neurology Neurology
DX: G45.9 Transient cerebral ischemic attack, unspecified (principal); I67.82 Cerebral ischemia
CPT/HCPCS: 70551

== ENCOUNTER → 2022-11-22 12:55 | Outpatient (BNVA) | payer MEDICARE, MEDICAID, SELFPAY | PROVIDERS: PCP Family Medicine; Visit Provider Psychiatry & Neurology Neurology | DX: G45.9 Transient cerebral ischemic attack, unspecified (principal); I10 Essential (primary) hypertension; G45.0 Vertebro-basilar artery syndrome; I99.8 Other disorder of circulatory system; W57.XXXA Bitten or stung by nonvenomous insect and other nonvenomous arthropods, initial encounter; R93.0 Abnormal findings on diagnostic imaging of skull and head, not elsewhere classified; M25.50 Pain in unspecified joint | CPT/HCPCS: 36415; 81241; 85210; 85613; 85730; 86146; 86147; 86617; 99213 ==

== ENCOUNTER 2022-12-08 11:00 | Oncology outpatient (recurring) (ONCR) | payer MEDICARE, MEDICAID, OTHER, SELFPAY | END 2022-12-16 23:59 | disposition home or self-care (01) | PROVIDERS: PCP Family Medicine; Visit Provider Internal Medicine Medical Oncology | DX: R76.0 Raised antibody titer (principal) | CPT/HCPCS: 99203 ==

== ENCOUNTER → 2023-01-03 15:15 | Outpatient (BNVA) | payer MEDICARE, MEDICAID, OTHER, SELFPAY | PROVIDERS: PCP Family Medicine; Visit Provider Nurse Practitioner Family | DX: I87.2 Venous insufficiency (chronic) (peripheral) (principal); D22.5 Melanocytic nevi of trunk; L57.8 Other skin changes due to chronic exposure to nonionizing radiation; D69.2 Other nonthrombocytopenic purpura; L85.3 Xerosis cutis | CPT/HCPCS: 99214 ==

== ENCOUNTER → 2023-01-17 12:42 | Outpatient (BNVA) | payer MEDICARE, MEDICAID, SELFPAY | PROVIDERS: PCP Family Medicine; Visit Provider Psychiatry & Neurology Neurology | DX: I99.8 Other disorder of circulatory system (principal); Z87.891 Personal history of nicotine dependence; R76.0 Raised antibody titer; M25.50 Pain in unspecified joint | CPT/HCPCS: 99212 ==

== ENCOUNTER 2023-02-13 09:46 | Oncology outpatient (recurring) (ONCR) | payer MEDICARE, MEDICAID, SELFPAY ==
[2023-02-13 10:26] VITALS: BMI 24.0
[2023-02-13 10:27] VITALS: BP 154/80; PULSE 67; RESP 18; TEMP 36.1; O2SAT 98
[2023-02-14 19:44] LABS: PTT-LA-Screen 39 sec (< OR = 40)
== END 2023-02-16 23:59 | disposition home or self-care (01) ==
LOC: ONCMED 09:47
PROVIDERS: PCP Family Medicine; Visit Provider Internal Medicine Medical Oncology
DX: R76.0 Raised antibody titer (principal)
CPT/HCPCS: 36415; 85613; 85730

== ENCOUNTER 2023-02-27 15:24 | Oncology outpatient (recurring) (ONCR) | payer MEDICARE, MEDICAID, SELFPAY | END 2023-03-18 23:59 | disposition home or self-care (01) | PROVIDERS: PCP Family Medicine; Visit Provider Internal Medicine Medical Oncology | DX: D68.62 Lupus anticoagulant syndrome (principal); I87.2 Venous insufficiency (chronic) (peripheral) | CPT/HCPCS: 99214 ==

== ENCOUNTER 2023-04-28 13:13 | Outpatient (CLI) | payer MEDICARE, MEDICAID, SELFPAY ==
--- NOTE | 2023-04-28 13:30 | USCV_ITS ---
Aniyah Berman Age: 67 Gender: F : 1955 Exam Date: 04/28/2023 13:32 Ordering Phys: Rhea Ng APRN Technologist: MAYRELLEN [place] [facility] [place]: HISTORY: PROCEDURES: FINDINGS: The veins were found to be easily compressible with spontaneous blood flow. Non pulsatile flow pattern. Normal venous dimensions No significant reflux either in the deep or in the superficial veins CONCLUSIONS 1. No significant reflux were noted in the superficial or deep veins mentioned above 2. Patent veins as mentioned above with normal dimensions. 3. No evidence of DVT Dr Terrence Millan MD [facility] (Electronically Signed) Final Date: 01 May 2023 20:23 S
== END 2023-04-28 13:14 | disposition home or self-care (01) ==
LOC: RAD 13:14
PROVIDERS: PCP Family Medicine; Visit Provider Nurse Practitioner Family
DX: I87.2 Venous insufficiency (chronic) (peripheral) (principal); R76.0 Raised antibody titer
CPT/HCPCS: 93970

== ENCOUNTER → 2023-05-01 13:42 | Outpatient (BNVA) | payer MEDICARE, MEDICAID, SELFPAY | PROVIDERS: PCP Family Medicine; Visit Provider Psychiatry & Neurology Neurology | DX: G45.9 Transient cerebral ischemic attack, unspecified (principal) | CPT/HCPCS: 99212 ==

== ENCOUNTER 2023-06-05 14:32 | Oncology outpatient (recurring) (ONCR) | payer MEDICARE, MEDICAID, SELFPAY ==
[2023-05-22 13:25] VITALS: BP 156/90; PULSE 81; RESP 16; TEMP 37.1; O2SAT 98
[2023-05-23 19:20] LABS: PTT-LA-Screen 38 sec (< OR = 40)
[2023-05-24 12:26] LABS: Beta 2 Glycoprotein IGA <2.0 U/mL (<20.0); Beta 2 Glycoprotein IGG <2.0 U/mL (<20.0); Beta 2 Glycoprotein IGM <2.0 U/mL (<20.0)
[2023-05-25 02:10] LABS: CARDIOLIPIN AB (IGA) <2.0 APL-U/mL; CARDIOLIPIN AB (IGG) <2.0 GPL-U/mL; CARDIOLIPIN AB (IGM) <2.0 MPL-U/mL
== END 2023-06-18 23:59 | disposition home or self-care (01) ==
PROVIDERS: Nurse Practitioner Family; PCP Family Medicine; Visit Provider Internal Medicine Medical Oncology
DX: R76.0 Raised antibody titer (principal); Z79.899 Other long term (current) drug therapy
CPT/HCPCS: 36415; 85613; 85730; 86146; 86147; 99214

== ENCOUNTER 2023-06-13 12:48 | Outpatient (CLI) | payer MEDICARE, MEDICAID, SELFPAY ==
--- NOTE | 2023-06-13 13:00 | MM_ITS ---
WS: [id number] BILATERAL 3D TOMOSYNTHESIS DIGITAL SCREENING MAMMOGRAPHY WITH CAD CLINICAL INFORMATION: SCREENING HISTORY: Screening mammogram. No current complaints. COMPARISON: 2021 TECHNIQUE: Bilateral CC and MLO views. FINDINGS: Scattered fibroglandular densities bilaterally. No suspicious focal mass, asymmetry, calcifications, or architectural distortion. No evidence of malignancy. IMPRESSION: MM/[place] [id number] BI-RADS: 1-Negative FOLLOW UP: 1 Year Follow-up Recommend return to annual screening mammography..
== END 2023-06-13 12:49 | disposition home or self-care (01) ==
LOC: MOBLMAM 12:54
PROVIDERS: PCP Family Medicine; Visit Provider Family Medicine
DX: Z12.31 Encounter for screening mammogram for malignant neoplasm of breast (principal)
CPT/HCPCS: 77063; 77067

== ENCOUNTER → 2023-10-30 13:54 | Outpatient (BNVA) | payer MEDICARE, MEDICAID, SELFPAY | PROVIDERS: PCP Family Medicine; Visit Provider Psychiatry & Neurology Neurology | DX: G45.9 Transient cerebral ischemic attack, unspecified (principal); I10 Essential (primary) hypertension; Z87.891 Personal history of nicotine dependence | CPT/HCPCS: 99212 ==

== ENCOUNTER → 2023-11-16 14:21 | Outpatient (BNVA) | payer MEDICARE, SELFPAY | PROVIDERS: PCP Family Medicine; Visit Provider Orthopaedic Surgery | DX: M54.50 Low back pain, unspecified (principal); M48.062 Spinal stenosis, lumbar region with neurogenic claudication | CPT/HCPCS: 72110; 99214 ==

== ENCOUNTER → 2024-04-29 12:15 | Outpatient (BNVA) | payer MEDICARE, SELFPAY | PROVIDERS: PCP Family Medicine; Visit Provider Psychiatry & Neurology Neurology | DX: I67.9 Cerebrovascular disease, unspecified (principal); G45.0 Vertebro-basilar artery syndrome; Z79.82 Long term (current) use of aspirin; I10 Essential (primary) hypertension | CPT/HCPCS: 99212; 99213 ==

== ENCOUNTER 2024-07-31 08:43 | Outpatient (CLI) | payer MEDICARE, SELFPAY ==
--- NOTE | 2024-07-31 13:40 | MM_ITS ---
WS: [id number] BILATERAL SCREENING DIGITAL TOMOSYNTHESIS MAMMOGRAM WITH CAD HISTORY: SCREENING COMPARISON: 06/13/2023, 06/07/2022 Bilateral CC and MLO views with tomosynthesis and synthetic mammography submitted. Computer aided detection analyzed. Breast composition: There are scattered areas of fibroglandular density. No suspicious masses, microcalcifications or architectural distortion. MM/MM scr BI tomosynthesis [id number] IMPRESSION: BI-RADS: 1 - Negative. FOLLOW UP: 1 Year Follow-up
== END 2024-07-31 08:44 | disposition home or self-care (01) ==
LOC: MOBLMAM 08:45
PROVIDERS: PCP Family Medicine; Visit Provider Family Medicine
DX: Z12.31 Encounter for screening mammogram for malignant neoplasm of breast (principal); R92.323 Mammographic fibroglandular density, bilateral breasts
CPT/HCPCS: 77063; 77067

== ENCOUNTER 2024-10-29 14:36 | Outpatient (CLI) | payer MEDICARE, SELFPAY ==
--- NOTE | 2024-10-29 15:00 | CTR_ITS ---
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 Exam focused on the arteries. 3D rendering (Not supervised by radiologist): MIP and/or 3D reconstructed images were created by the technologist. Radiation optimization: All CT scans at this facility use at least one of these dose optimization techniques: automated exposure control; mA and/or kV adjustment per patient size (includes targeted exams where dose is matched to clinical indication); or iterative reconstruction. Contrast material: OMNIPAQUE 350; Contrast volume: 100 ml; Contrast route: INTRAVENOUS (IV); COMPARISON: CT angio [place]* [id number] 09/26/2022 11:27 AM RADIATION DOSE METRICS: Total DLP (mGy-cm): 1060.8 FINDINGS: ANTERIOR CIRCULATION: Right internal carotid artery: Intracranial segment is patent with no significant stenosis or occlusion. No aneurysm. Right middle cerebral artery: No occlusion or significant stenosis. No aneurysm. Right anterior cerebral artery: No occlusion or significant stenosis. No aneurysm. Left internal carotid artery: Intracranial segment is patent with no significant stenosis. No aneurysm. Left middle cerebral artery: No occlusion or significant stenosis. No aneurysm. Left anterior cerebral artery: No occlusion or significant stenosis. No aneurysm. POSTERIOR CIRCULATION: Right vertebral artery: No occlusion or significant stenosis. No aneurysm. Left vertebral artery: No occlusion or significant stenosis. No aneurysm. Basilar artery: No occlusion or significant stenosis. No aneurysm. Right posterior cerebral artery: No occlusion or significant stenosis. No aneurysm. Left posterior cerebral artery: No occlusion or significant stenosis. No aneurysm. HEAD: Brain: There is mild chronic periventricular white matter ischemic change. There is no evidence of mass effect, infarct or hemorrhage. Cerebral ventricles: Normal. No ventriculomegaly. Bones: Unremarkable. No acute fracture. Paranasal sinuses: Visualized sinuses are normal. No fluid levels. Mastoid air cells: Visualized mastoids are normal. No mastoid effusion. Soft tissues: Unremarkable. PROCEDURE INFORMATION: Exam: CTA Neck With Contrast Exam date and time: 10/29/2024 3:33 PM Age: 69 years old Clinical indication: Condition or disease; Other: Vertebro-basilar artery syndrome; Additional info: G45.0 - vertebro-basilar artery syndrome TECHNIQUE: Imaging protocol: Computed tomographic angiography of the neck with contrast. Exam focused on the cervical segments of the vasculature. 3D rendering (Not supervised by radiologist): MIP and/or 3D reconstructed images were created by the technologist. Radiation optimization: All CT scans at this facility use at least one of these dose optimization techniques: automated exposure control; mA and/or kV adjustment per patient size (includes targeted exams where dose is matched to clinical indication); or iterative reconstruction. Contrast material: OMNIPAQUE 350; Contrast volume: 100 ml; Contrast route: INTRAVENOUS (IV); [facility] [id number] 09/26/2022 11:27 AM RADIATION DOSE METRICS: Total DLP (mGy-cm): 1060.8 FINDINGS: Right common carotid artery: No stenosis. No dissection or occlusion. Right internal carotid artery: No stenosis of the extracranial segment. No dissection or occlusion. Right external carotid artery: No occlusion or stenosis of the origin. Left common carotid artery: No stenosis. No dissection or occlusion. Left internal carotid artery: No stenosis of the extracranial segment. No dissection or occlusion. Left external carotid artery: No occlusion or stenosis of the origin. Right vertebral artery: No stenosis. No dissection or occlusion. Left vertebral artery: No stenosis. No dissection or occlusion. Soft tissues: Normal. No significant soft tissue swelling. Bones/joints: No acute fracture. CT/CT angio [facility] [place]* [id number] IMPRESSION: 1. Mild chronic white matter ischemic changes. 2. No arterial abnormality noted IMPRESSION: No stenosis or occlusion. REFERENCES: NASCET CRITERIA. The degree of stenosis in the cervical segment of the internal carotid artery is based on NASCET criteria. Normal is no stenosis. Mild is less than 50% stenosis. Moderate is 50-69% stenosis. Severe is 70% to 99% stenosis. Total occlusion is no detectable patent lumen.
[2024-10-29 15:29] LABS: Blood Urea Nitrogen 9 mg/dL (8-23); Glomerular Filtration Rate 98.8 mL/min (90-130)
[2024-10-29] MEDS: iohexol 350 mg/mL 500 mL Btl (per mL) IV (15:41)
== END 2024-10-29 14:37 | disposition home or self-care (01) ==
PROVIDERS: PCP Family Medicine; Visit Provider Psychiatry & Neurology Neurology
DX: G45.0 Vertebro-basilar artery syndrome (principal); R93.0 Abnormal findings on diagnostic imaging of skull and head, not elsewhere classified
CPT/HCPCS: 70496; 70498; 82565; 84520